=== PATIENT | male | born 1990 | race Caucasian/White ===

== ENCOUNTER 2018-12-16 07:05 | Day surgery (SDC) | payer OTHER ==
[2018-12-16] MEDS: ACETAMINOPHEN 500 MG TAB PO (11:37)
[2018-12-16] MEDS: LACTATED RINGER'S 1,000 ML IV (11:37)
[2018-12-16] MEDS ORDERED: DESFLURANE 15 MIN (13:00)
[2018-12-16] MEDS ORDERED: DEXAMETHASONE 4 MG/ML 5 ML INJ (13:00)
[2018-12-16] MEDS ORDERED: CEFAZOLIN 1 GM INJ (13:00)
[2018-12-16] MEDS ORDERED: SUGAMMADEX SODIUM 200 MG/2 ML VIAL IV (13:00)
[2018-12-16] MEDS ORDERED: LIDOCAINE 2% (SDV) 5 ML INJ (13:05)
[2018-12-16] MEDS ORDERED: ROCURONIUM 50 MG INJ (13:05)
[2018-12-16] MEDS ORDERED: MIDAZOLAM 1 MG/ML 2 ML INJ (13:05)
[2018-12-16] MEDS ORDERED: PROPOFOL 40 ML (13:05)
[2018-12-16] MEDS ORDERED: ONDANSETRON 4 MG INJ (13:06)
[2018-12-16] MEDS ORDERED: FAMOTIDINE 20 MG INJ (13:06)
[2018-12-16] MEDS ORDERED: FENTAnyl 50 MCG/ML VIAL (13:06)
[2018-12-16] MEDS ORDERED: LABETALOL HCL 20MG INJ IV (14:00)
[2018-12-16] MEDS ORDERED: DIPHENHYDRAMINE 50 MG INJ IV (14:00)
[2018-12-16] MEDS ORDERED: OXYCODONE/ACETAMINOPHEN (5/325) TAB PO ×2 (14:00)
[2018-12-16] MEDS ORDERED: MEPERIDINE 25 MG INJ IV (14:00)
[2018-12-16] MEDS ORDERED: morphine 2 MG INJ IV ×2 (14:00)
[2018-12-16] MEDS ORDERED: HYDROmorphONE 1 MG/5 ML IV SYRINGE IV (14:00)
[2018-12-16] MEDS ORDERED: FENTAnyl 50 MCG/ML VIAL IV ×2 (14:00)
[2018-12-16] MEDS ORDERED: ALBUTEROL 0.083% (NEB) 2.5 MG/3 ML AMP HHN (14:00)
[2018-12-16] MEDS: LIDOCAINE 1%/EPI 30 ML INJ INJ (14:36)
[2018-12-16] MEDS: BACITRACIN/POLYMYXIN 0.9 GM OINT TOP (14:37)
[2018-12-16] MEDS: COCAINE 4% 4 ML TOP (14:38)
[2018-12-16] MEDS: ONDANSETRON 4 MG INJ IV (15:41)
[2018-12-16] MEDS: HYDROmorphONE 1 MG/5 ML IV SYRINGE IV ×2 (15:41→15:50)
== END 2018-12-16 17:30 | disposition home or self-care (01) ==
LOC: SDS 07:05
DX: J34.2 Deviated nasal septum (principal); J34.3 Hypertrophy of nasal turbinates
CPT/HCPCS: 30140; 88300